=== PATIENT | female | born 1965 | race Caucasian/White ===

== ENCOUNTER 2017-01-29 08:00 | Day surgery (SDC) | payer OTHER ==
--- NOTE | ~2017-01-29 | EGD ---
EGD REPORT [facility] [address] [address] NAME: BLAIRE SALOMON : [birth year] STATUS : REG [facility]#: [id number] AGE: 52 ADM/REG DATE : 01/29/17 MR#: [id number] REPORT SERV DATE: 01/29/17 DICTATED BY: TYRON ESCAMILLA DATE: 01/29/17 REPORT STATUS : Draft TRANSCRIBED BY: [facility] DATE: 01/29/17 Endoscopy Center Patient Name: Blaire Salomon Date of : 1965 Attending MD: TYRON ESCAMILLA MD Procedure Date No Time: 01/29/2017 Procedure: Colonoscopy Indications: Abdominal pain in the right lower quadrant, FH of Colonic Polyps - 1st degree relative, Abnormal CT of the GI tract Medicines: Propofol per Anesthesia Complications: No immediate complications. Procedure: Pre-Anesthesia Assessment: - ASA Grade Assessment: III - A patient with severe systemic disease. After I obtained informed consent, the scope was passed under direct vision. Throughout the procedure, the patient's blood pressure, pulse, and oxygen saturations were monitored continuously. The CF [id number] was introduced through the anus and advanced to the terminal ileum. The colonoscopy was performed without difficulty. The patient tolerated the procedure well. The quality of the bowel preparation was good. Findings: The perianal and digital rectal examinations were normal. The terminal ileum appeared normal. Biopsies were taken with a cold forceps for histology. to r/o microscopic ileitis The colon (entire examined portion) appeared normal. Biopsies were taken with a cold forceps from the right colon for evaluation of microscopic colitis. Biopsies were taken with a cold forceps from the left colon for evaluation of microscopic colitis. Two sessile polyps were found in the cecum. The polyps were 4 to 7 mm in size. These polyps were removed with a hot snare. Resection and retrieval were complete. Multiple small and large-mouthed diverticula were found in the recto-sigmoid colon, in the sigmoid colon, in the descending colon, in the transverse colon and in the ascending colon. A sessile polyp was found in the transverse colon. The polyp was 2 mm in size. The polyp was removed with a cold biopsy forceps. Resection and retrieval were complete. A sessile polyp was found in the sigmoid colon. The polyp was 5 mm in size. The polyp was removed with a hot snare. Resection and retrieval were complete. Non-bleeding internal hemorrhoids were found during retroflexion and EGD REPORT [address] [address] NAME: BLAIRE SALOMON : [birth year] STATUS : [facility] [place]#: [id number] AGE: 52 ADM/REG DATE : 01/29/17 MR#: [id number] REPORT SERV DATE: 01/29/17 DICTATED BY: TYRON ESCAMILLA DATE: 01/29/17 REPORT STATUS : Draft TRANSCRIBED BY: [employer] DATE: 01/29/17 were mild, medium-sized and Grade I (internal hemorrhoids that do not prolapse). Impression: - The examined portion of the ileum was normal. Biopsied. - The entire examined colon is normal. Biopsied. - Two 4 to 7 mm polyps in the cecum. Resected and retrieved. - Diverticulosis in the recto-sigmoid colon, in the sigmoid colon, in the descending colon, in the transverse colon and in the ascending colon. - One 2 mm polyp in the transverse colon. Resected and retrieved. - One 5 mm polyp in the sigmoid colon. Resected and retrieved. - Non-bleeding internal hemorrhoids. Recommendation: - Patient has a contact number available for emergencies. The signs and symptoms of potential delayed complications were discussed with the patient. Return to normal activities tomorrow. Written discharge instructions were provided to the patient. - Return to previous diet. - Continue present medications. - Await pathology results. - Repeat colonoscopy in 3 - 5 years for surveillance based on pathology results. - Return to my office as previously scheduled. - Discharge patient to home. Procedure Code(s): --- Professional --- 29275, Colonoscopy, flexible, proximal to splenic flexure; with removal of tumor(s), polyp(s), or other lesion(s) by snare technique 72904, 59, Colonoscopy, flexible, proximal to splenic flexure; with biopsy, single or multiple Diagnosis Code(s): --- Professional --- K64.0, First degree hemorrhoids K57.30, Diverticulosis of large intestine without perforation or abscess without bleeding D12.5, Benign neoplasm of sigmoid colon D12.3, Benign neoplasm of transverse colon D12.0, Benign neoplasm of cecum R10.31, Right lower quadrant pain Z83.71, Family history of colonic polyps R93.3, Abnormal findings on diagnostic imaging of other parts of digestive tract EGD REPORT [place] [address] [address] NAME: BLAIRE SALOMON : [birth year] STATUS : [facility] [place] PAT#: [id number] AGE: 52 ADM/REG DATE : 01/29/17 MR#: [id number] REPORT SERV DATE: 01/29/17 DICTATED BY: TYRON ESCAMILLA DATE: 01/29/17 REPORT STATUS : Draft TRANSCRIBED BY: [employer] DATE: 01/29/17 CPT copyright 2013 [employer] [employer]. All rights reserved. The codes documented in this report are preliminary and upon business english instructor review may be revised to meet current compliance requirements. Tyron Escamilla MD TYRON ESCAMILLA MD 01/29/2017 11:37 AM This report has been signed electronically. Number of Addenda: 0 Note Initiated On: 01/29/2017 10:12 AM Scope Withdrawal Time 0 hours 28 minutes 22 seconds [address] [address]
[~2017-01-29 08:00] MED LIST: LIALDA1.2 GM PO; V5 PO; ZOFRAN4 PO
== END 2017-01-29 23:59 | disposition home or self-care (01) ==
LOC: DMU 08:00
PROVIDERS: Internal Medicine Gastroenterology
PROC: 0DBH8ZZ Excision of Cecum, Via Natural or Artificial Opening Endoscopic (ICD-10-PCS; 2017-01-29)
PROC: 0DBL8ZZ Excision of Transverse Colon, Via Natural or Artificial Opening Endoscopic (ICD-10-PCS; 2017-01-29)
PROC: 0DBN8ZZ Excision of Sigmoid Colon, Via Natural or Artificial Opening Endoscopic (ICD-10-PCS; 2017-01-29)
PROC: 0DBB8ZX Excision of Ileum, Via Natural or Artificial Opening Endoscopic, Diagnostic (ICD-10-PCS; principal; 2017-01-29 09:30)
PROC: 0DBE8ZX Excision of Large Intestine, Via Natural or Artificial Opening Endoscopic, Diagnostic (ICD-10-PCS; 2017-01-29 09:30)
DX: D12.0 Benign neoplasm of cecum (principal); D12.6 Benign neoplasm of colon, unspecified; D12.3 Benign neoplasm of transverse colon; D12.5 Benign neoplasm of sigmoid colon; K64.0 First degree hemorrhoids; K57.30 Diverticulosis of large intestine without perforation or abscess without bleeding; R10.31 Right lower quadrant pain; Z83.71 Family history of colonic polyps; R93.3 Abnormal findings on diagnostic imaging of other parts of digestive tract; K57.92 Diverticulitis of intestine, part unspecified, without perforation or abscess without bleeding; I10 Essential (primary) hypertension; I49.9 Cardiac arrhythmia, unspecified; M79.7 Fibromyalgia; E66.9 Obesity, unspecified; K58.9 Irritable bowel syndrome, unspecified; F41.9 Anxiety disorder, unspecified; Z98.891 History of uterine scar from previous surgery; Z90.710 Acquired absence of both cervix and uterus; Z90.13 Acquired absence of bilateral breasts and nipples; Z88.8 Allergy status to other drugs, medicaments and biological substances; Z88.1 Allergy status to other antibiotic agents; Z91.048 Other nonmedicinal substance allergy status; Z91.041 Radiographic dye allergy status; Z91.040 Latex allergy status; Z79.899 Other long term (current) drug therapy
CPT/HCPCS: 88305; J2405